=== PATIENT | male | born 1970 | race Hispanic/Latino ===

== ENCOUNTER 2017-02-07 05:32 | Day surgery (SDC) | payer OTHER ==
[~2017-02-07] VITALS: Ht 167.6 cm; Wt 71.1 kg
[2017-02-07] VITALS (9 sets, daily range): BP systolic 94–120; BP diastolic 45–74; PULSE 60–88; RESP 16–18; O2SAT 92–98
[~2017-02-07 05:32] MED LIST: Lactated Ringer's 1,000 ML IV SCH
[2017-02-07] MEDS ORDERED: fentaNYL-PF 50 mCg/mL 2 mL Inj ONE (05:33)
[2017-02-07] MEDS ORDERED: Propofol 10,000 mCg/mL 20 mL Inj ONE (05:33)
[2017-02-07] MEDS ORDERED: Ondansetron 2 mg/mL 2 mL Inj ONE (05:33)
[2017-02-07] MEDS ORDERED: Lactated Ringer's 1,000 ML IV ONE ×2 (05:51→08:29)
[2017-02-07] MEDS ORDERED: Clindamycin Inj 900 MG in IV Premix 1 EACH IV SCH (06:00)
--- NOTE | 2017-02-07 07:16 | PCM.HPANE ---
Patient Data Surgeon Admitting Provider: Attending Provider:Marlon Alegria MD Primary Care Physician:Renee Other Provider:Olga Gaticaingham Anesthesia Reason for Visit Scalp Mass, Pigmented Lesion Ht/WT & BMI Height (Feet): 5 Height (Inches): 6.00 Weight (Kilograms): 71.1 Body Mass Index 25.00 Allergies Coded Allergies: No Known Allergies (Verified , 02/10/05) Past Anesthesia History Anesthesia History: Denies:: Abnormal Airway, Anesthesia Reactions (no prior surgery), Difficult Intubation, Fam Anesthesia Reaction Diabetes History Hx Diabetes?: No MRSA MRSA: No Medications Hypertension Medication: No Home Meds Incl Beta Joanie: No No Active Prescriptions or Reported Meds History History of ENT Problems?: No HEENT History: Denies:: Abnormal Airway Cataracts Difficult Intubation Dysphagia Glaucoma Hearing Problem Sinus Problem TMJ Denture Type: None Teeth Condition: Within Normal Limits Hx of Heart Problems?: No Cardiovascular History: Denies:: AICD Abdominal Aortic Aneurism Atrial Fibrillation Heart Murmur Hypertension Irregular Heartbeat Pacemaker Hx of Respiratory Problem?: No Respiratory History: Denies:: Asthma COPD Emphysema Oxygen Administration Pneumonia Tuberculosis Use of C-PAP Machine Use of Inhalers / NEBS Hx Neurologic Problems?: No Neurological History: Denies:: CVA Headaches Multiple Sclerosis Parkinson's Disease Seizures TIA Hx of GI Problems?: No Hx of Problems?: No Genitourinary History: Denies:: Kidney Stones Urinary Tract Infection Male Hx: Denies:: Prostate Problems Skin History: Positive for:: History Skin Disorders? (scalp lesion x 2) Denies:: Pressure Ulcers Hx Musculoskeletal Problems?: No Musculoskeletal History: Denies:: Back Injury Fibromyalgia Joint Replacement Musculoskeletal Trauma Osteoarthritis Systemic Lupus Hx of Psycho/Social Problems?: No Psycho Social History: Denies:: Anxiety Hx Depression Hx Surgeries?: No Hx Any Other Health Problems?: Yes Other History: Denies:: Cancer Thyroid Disease History Blood Transfusions: Positive for:: Accept Blood Products? Denies:: Blood Transfusions Hx Diabetes: No Hx Alcohol Use: YesAlcoholic Drinks Per Day: 1-2 beers dailyHx Substance Use: NoHave You Smoked inLast 12 mo: Yes (5 cig daily) Stop/Bang S-Snoring: Do You Snore Loudly: No T-Tired: feel tired, fatigued: No O-Obsered: Observed not breath: No P-Blood Pressure: treated: No B- Body Mass Index > 35 kg/m2: No A- Age over 50: No N- Neck Large Circumference: No G- Gender Male: Yes ANDREZ Total Score: 1 Risk Assessment Category Category 1A: Patient has history of documented sleep apnea, and HAS NOT received any narcotic, sedative or anesthesia administration during this stay. Category 1B: Patient has history of documented sleep apnea, and HAS received any narcotic , sedative or anesthesia administration during this stay Category 2: Patient has SUSPECTED Obstructive Sleep Apnea, and HAS received any narcotic , sedative or anesthesia administration during this stay. Category 3: Patient has SUSPECTED Obstructive Sleep Apnea and HAS NOT received narcotic, sedative or anesthesia administration during this stay. Category 4: Outpatient in Procedural Areas with known sleep apnea or who screen positive for High Risk via the STOP/BANG questionnaire. Exam Exam Vital Signs Vital Signs Date Time Temp Pulse Resp B/P Pulse Ox O2 Delivery O2 Flow Rate FiO2 02/07/17 05:52 36.2 66 17 120/74 98 Room Air General Appearance: Alert, Oriented X3, Cooperative HEENT/AIRWAY: MP 1 Lungs: Clear to Auscultation, Clear to Percussion Heart: Exam Unremarkable, Regular Rate/Rhythm, Normal S1, Normal S2 Meds/Labs/Diagnostics Admission Meds Current Medications Lactated Ringer's (Lr) 1,000 ml @ ud STK-MED ONCE IV Last administered on t 05:51; Start 02/07/17 at 05:51; Stop 02/07/17 at 05:52; Status DC Plan Impression Patient chart reviewed, patient interviewed and anesthestic plan with risks, benefits, and alternatives discussed, and informed consent obtained. ASA Physical Status: ASA2 Mod Systemic Disease Anesthetic Plan: GA Bene/Risks/Altern/Consents: Yes HP Complete Prior to Induction: Yes Ramu Hall MD Feb 07, 2017 07:16
[2017-02-07] MEDS ORDERED: Lidocaine MPF 2%-Epi 1:200,000 20mL Inj INFILTRATE ONE (07:31)
[2017-02-07] MEDS ORDERED: Bupivacaine-MPF 0.25% 30 mL Inj INFILTRATE ONE (07:31)
[2017-02-07] MEDS ORDERED: Lactated Ringer's 500 ML IV PRN (08:06)
[2017-02-07] MEDS ORDERED: Lactated Ringer's 1,000 ML IV SCH (08:06)
[2017-02-07] MEDS ORDERED: EPHEDrine Sulfate 50 mg/mL Inj IVPUSH PRN (08:10)
[2017-02-07] MEDS ORDERED: Ondansetron 2 mg/mL 2 mL Inj IVPUSH PRN (08:10)
[2017-02-07] MEDS ORDERED: MetoCLOpramide 5 mg/mL 2 mL Inj IVPUSH PRN (08:10)
[2017-02-07] MEDS ORDERED: Dexamethasone 4 mg/mL Inj IVPUSH PRN (08:10)
[2017-02-07] MEDS ORDERED: Phenylephrine 10,000 mCg/mL Inj IVPUSH PRN (08:10)
[2017-02-07] MEDS ORDERED: fentaNYL-PF 50 mCg/mL 2 mL Inj IVPUSH PRN (08:10)
[2017-02-07] MEDS ORDERED: HYDROmorphone 1 mg/mL Inj IVPUSH PRN (08:10)
--- NOTE | 2017-02-07 13:29 | PCM.ANEP1 ---
Post Anesthesia PACU Phase 1 Assessment Vital Signs Vital Signs Date Time Temp Pulse Resp B/P Pulse Ox O2 Delivery O2 Flow Rate FiO2 02/07/17 10:00 60 16 109/59 98 Room Air 02/07/17 09:19 63 16 93 Nasal Cannula 1 02/07/17 09:15 75 16 99/52 96 Nasal Cannula 2 02/07/17 09:05 36.5 67 16 101/52 94 Nasal Cannula 2 02/07/17 08:55 72 17 94/53 93 Nasal Cannula 2 02/07/17 08:50 71 16 94/45 92 Room Air 02/07/17 08:45 80 18 94/55 93 Room Air 02/07/17 08:40 36.7 88 18 107/57 98 Simple Mask 8 02/07/17 05:52 36.2 66 17 120/74 98 Room Air Anesthetic Administered: GA Level of Alertness: Sleepy, easy to arouse CARMONA's with Equal Strength: Yes Pain: No Nausea or Vomiting: No CV Function & Hydration Stable: Yes Airway Device: Oralpharangeal Airway Oxygen Delivery: Simple Mask Lungs: Clear to Auscultation, Clear to Percussion Dermatome Level: Full Sensation PACU Phase 2 Assessment Complications: No Follow up Care: N/A Patient Instructions Provided: N/A Ramu Hall MD Feb 07, 2017 13:29
--- NOTE | 2017-02-10 02:45 | OP ---
[address] [address] OPERATIVE REPORT PATIENT: XAVIER FRANCO : 1970 MR#: [id number] ADMIT: 02/07/2017 JOB ID: [id number] DATE OF SURGERY: 02/07/2017 PREOPERATIVE DIAGNOSIS(ES): 1. Left vertex scalp mass. 2. Left zoroastrian pigmented lesion. POSTOPERATIVE DIAGNOSIS(ES): 1. Left vertex scalp mass. 2. Left zoroastrian pigmented lesion. PROCEDURE: 1. Excision of left zoroastrian pigmented lesion 1.5 cm. 2. Layered closure of left zoroastrian defect, total length of layered closure 6 cm. 3. Excision of scalp mass, 3.5 cm. 4. Layered closure of scalp defect, total length of layered closure 5.5 cm. SURGEON: Marlon Alegria MD. BISQUE PLACER: None. ANESTHESIA: General anesthesia. COMPLICATIONS: None apparent. SPECIMEN: 1. Left zoroastrian pigmented lesion to pathology for frozen section (pathology report demonstrated a seborrheic keratosis). 2. Left vertex scalp mass. ESTIMATED BLOOD LOSS: Minimal. COMPLICATIONS: None apparent. INDICATIONS FOR PROCEDURE: This is a 47-year-old, male patient with a vertex scalp mass, just to the left of midline. This is still enlarging. This is developing symptoms such as difficulty for patient to lie flat as well as difficulty with wearing a hat. The patient also has a changing pigmented lesion of left zoroastrian. At this point, excision of both lesions are indicated for symptom relief and for tissue diagnosis. PROCEDURE AND FINDINGS: The patient was identified in the preoperative area. The surgical site was marked. The patient was then taken back to the operating room and placed supine on the operating table. Appropriate time-outs were taken. General anesthesia was induced smoothly. The patient was then prepped and draped in the usual sterile manner. It was noted that patient has a irregularly bordered pigmented lesion of the left zoroastrian. A incision was marked around this lesion, approximately 3 mm of margin. Incision was then made with a #15 blade just through the skin. This piece of skin with the lesion was resected with a very small amount of subcutaneous tissue at the underside. This was passed off to pathology for frozen section with a short stitch marking superior and long stitch marking lateral. Hemostasis was obtained with electrocautery as well as with pressure and epinephrine soaked Telfa. While the frozen section was being carried out, I turned my attention to the scalp mass. A transverse ellipse was designed over this mass. Incision was then made with a #15 blade just down through the scalp skin. 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 I then performed blunt dissection and sharp dissection with a pair of tenotomy scissors to elevate the scalp off of this mass. This was done circumferentially. I then elevated the mass off of the underlying galea. This was passed off to pathology as a specimen with overlying ellipse of skin. The mass is approximately 2.5 cm in diameter. Once this has been done, a layer of 3-0 Monocryl deep dermal sutures were then placed. A layer of skin elena were then placed for epidermal reapproximation. Pathology report for the zoroastrian lesion demonstrated the superior keratosis. At this point, the ellipse was then designed to encompass the defect. The skin darts superior and inferior to the defect were then excised with a #15 blade at a superficial subcutaneous level. I then elevated the skin flap toward the hair line with a pair of tenotomy scissors. This was done for approximately 1 cm. Once this has been done, the incision was reapproximated first with a layer of 4-0 Monocryl deep dermal suture, followed by 5-0 nylon simple running suture. The scalp mass diameter was 2.5 cm. The total length of layered closure of the defect on the scalp was 5 cm. The diameter for the zoroastrian lesion was 1.5 cm x 2 cm. The total length of layered closure was 5.5 cm.
== END 2017-02-07 23:59 | disposition home or self-care (01) ==
LOC: SAS 05:32
PROVIDERS: ATTEND Plastic Surgery
DX: R22.0 Localized swelling, mass and lump, head (principal); L82.1 Other seborrheic keratosis; F17.210 Nicotine dependence, cigarettes, uncomplicated
CPT/HCPCS: 11444; 21012; J1885; J2250; J2405; J3010; J7120